=== PATIENT | female | born 1985 | race Two or more races ===

== ENCOUNTER 2020-02-07 11:10 | Emergency (ER) | payer OTHER ==
[~2020-02-07] VITALS: Ht 170.2 cm; Wt 68.2 kg
[2020-02-07 11:23] VITALS: BP 112/41
== END 2020-02-07 11:17 | disposition home or self-care (01) ==
LOC: EMS 11:16
DX: Z20.828 Contact with and (suspected) exposure to other viral communicable diseases (principal)
CPT/HCPCS: 99283; U0003